=== PATIENT | male | born 1980 | race Caucasian/White ===

== ENCOUNTER → 2020-06-20 | Outpatient (CLI) | payer OTHER ==
--- NOTE | 2020-06-20 17:23 | RAD ---
Examination: MRI of the right elbow without contrast HISTORY: History of right elbow pain COMPARISON: None available TECHNIQUE: Multiplanar, multisequence MR imaging of the right elbow were performed without contrast. FINDINGS: The attachment of the triceps tendon to the olecranon processes grossly appears intact. The attachment of the common flexor tendon to the medial epicondyle, common extensor tendon lateral epicondyle grossly appears intact. The distal attachment of the brachialis tendon the biceps tendon grossly appears intact The muscle bulk grossly appears unremarkable Minimal elbow joint effusion. The visualized ulnar collateral ligament, radial collateral ligament, lateral ulnar collateral ligament appears intact. The ulnar nerve within the cubital tunnel grossly appears unremarkable. IMPRESSION: 1. Minimal elbow joint effusion. 2. The ulnar nerve within the cubital tunnel grossly appears unremarkable. Electronically signed by: Marcello Huang MD (06/20/2020 5:21 PM) [id number]
== END | disposition home or self-care (01) ==
LOC: MRI 14:51
PROVIDERS: ATTEND Orthopaedic Surgery Sports Medicine
DX: M25.421 Effusion, right elbow (principal); G56.21 Lesion of ulnar nerve, right upper limb
CPT/HCPCS: 73221